=== PATIENT | female | born 1955 | race Caucasian/White ===

== ENCOUNTER → 2017-03-08 | Outpatient (CLI) | payer BC ==
[~2017-03-08] MED LIST: ALBU1AER9 INH; CLR10 PO; LSN5 PO; MOME1AER5 INH; PRD10 PO; SRVDIN60 INH; TRIATAB3 PO
--- NOTE | 2017-03-08 12:05 | DIAGNOSTIC IMAGING REPORT ---
ULTRASOUND GUIDED FINE NEEDLE ASPIRATION OF RIGHT LOBE THYROID NODULES CLINICAL HISTORY: Several thyroid nodules. COMPARISON STUDY: Thyroid ultrasound February 12, 2017. PROCEDURE: Sonography of the thyroid gland again demonstrated the right mid pole nodule as well as the right lower pole nodule. The left lobe nodule shown on prior exam was not evident by sonography and by report was stable since earlier exam. Therefore, 2 right lobe nodules were targeted for fine needle aspiration. The procedure, risks and benefits were discussed with the patient and informed written consent was obtained. The procedure was performed by Dr. Pelayo following a timeout. Skin was prepped and draped in sterile fashion and local anesthesia was achieved with 1% lidocaine. Under direct ultrasound guidance, 2 25-gauge fine needle aspirations were performed within each of the 2 right lobe nodule. Samples were deemed preliminarily adequate by pathology. Patient tolerated the procedure well and no immediate complications were evident. IMPRESSION: 1. Ultrasound guided fine needle aspiration of 2 right lobe thyroid nodules. 2. Previously described left lobe thyroid nodule was not evident by sonography and by report was unchanged since earlier ultrasound. Therefore, no left lobe biopsy was performed. Electronically signed by: Devon Pelayo M.D. 03/08/2017 12:03 PM Dictated Date/Time: 03/08/2017 12:00 PM
== END | disposition home or self-care (01) ==
LOC: C.ULTR 09:25
PROVIDERS: ATTEND Internal Medicine
DX: E04.2 Nontoxic multinodular goiter (principal)